=== PATIENT | female | born 1965 | race African-American/Black ===

== ENCOUNTER 2018-08-06 08:59 | Emergency (ER) | payer OTHER ==
[~2018-08-06] VITALS: Ht 167.6 cm; Wt 91.6 kg
[~2018-08-06 08:59] MED LIST: AMOXICILLIN 50500 M1 PO; APAP/CODEINE ELI5 M1 OR; CIPROFLOXACIN500 M1 PO; CITRATE OF MAG300 ML PO; COLACE 100 MG100 MG PO; DIFLUCAN150 MG PO; FLAGYL500 MG PO; GLUCOPHAGE500 MG PO; IBUPROFEN 800800 M1 PO; METFORMIN HCL500 MG PO; PYRIDIUM200 MG PO; [UNRECOGNIZED DRUG - REMARK]
[2018-08-06] MEDS ORDERED: TRULICITY1.5 MG/0.5 (09:41)
[2018-08-06 10:17] LABS: BASOPHILS 0.8 % (0.0-2.0); HEMOGLOBIN 13.1 gm/dL (12.0-15.0); LYMPHOCYTES 26.4 % (24.0-44.0); MCH 30.2 pg (26.0-34.0); MCHC 33.7 g/dL (28.0-37.0); MCV 89.6 fL (80.0-100.0); MONOCYTES 7.1 % (1.0-8.0); PLATELET COUNT 358 thou/uL (150-400); POLYS 63.7 % (36.0-66.0); RBC 4.35 mil/uL (4.20-5.00); RDW 14.8 % (10.5-14.5); WBC 7.9 thou/uL (4.0-11.0)
[2018-08-06 10:29] LABS: CALCIUM 9.7 mg/dL (8.5-10.1); CREATININE 0.7 mg/dL (0.6-1.0); POTASSIUM 4.2 mmol/L (3.5-5.1)
[2018-08-06] MEDS ORDERED: LOPERAMIDE 2 MG2 M1 PO (10:47)
[2018-08-06] MEDS ORDERED: BENTYL 20 MG TA20 M1 PO (10:47)
[2018-08-06] MEDS ORDERED: NORCO 5-325 TA1 EACH PO (10:47)
[2018-08-06] MEDS ORDERED: ZOFRAN ODT4 MG PO (10:47)
[2018-08-06 10:59] VITALS: BP 153/80
== END 2018-08-06 11:08 | disposition home or self-care (01) ==
LOC: ER 08:59
PROVIDERS: Emergency Medicine
DX: K52.9 Noninfective gastroenteritis and colitis, unspecified (principal); E11.9 Type 2 diabetes mellitus without complications; E78.00 Pure hypercholesterolemia, unspecified; Z87.891 Personal history of nicotine dependence; Z91.041 Radiographic dye allergy status